=== PATIENT | male | born 1975 | race Caucasian/White ===

== ENCOUNTER → 2018-01-16 | Outpatient (CLI) | payer BC ==
--- NOTE | 2018-01-16 16:43 | KCIC ---
Indications: Polyarthralgia. Multiple joint pain. Joint inflammation. AP view the pelvis: There is severe joint space narrowing with loss of joint space of both hip joints. There is moderate subchondral sclerosis and cyst formation of the left hip joint. There is spurring of both hip joints. The SI joints and symphysis pubis are unremarkable. No acute fracture or dislocation or lytic process is evident. Impression: Severe degenerative osteoarthritis of both hip joints worse on the left side. 3 view study of the left foot: No acute fracture or dislocation or osteolytic process is evident. There is mild primary degenerative osteoarthritis of the first metatarsal phalangeal joint. No erosive arthropathy is evident. No plantar spur of the calcaneus is evident. 3 view study of the right foot: No acute fracture or dislocation or osteolytic process is evident. There is moderate to severe primary degenerative osteoarthritis of the first metatarsal phalangeal joint with loss of joint space. There are marginal erosions of this joint compartment and therefore could be secondary to gout. No erosive arthropathy is evident. No plantar spur of the calcaneus is evident. IMPRESSION: Primary degenerative osteoarthritis of the first metatarsal phalangeal joint of the left foot. Moderate to severe degenerative osteoarthritis of the first metatarsal phalangeal joint of the right foot. Erosive arthropathy is seen here and therefore could be secondary to gout. 3 view study of the left hand: No acute fracture or dislocation or osteolytic process is evident. No erosive arthropathy is evident. No significant arthritic change is seen. 3 view study right hand: No acute fracture or dislocation or osteolytic process is evident. There is erosive arthropathy of the articulation between the trapezium bone and the proximal second metacarpal bone. No significant degenerative spurring is evident. 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 Electronically signed by: Mateo Alejandro MD (01/16/2018 4:40 PM) [facility]
== END | disposition home or self-care (01) ==
LOC: KCIC 14:41
PROVIDERS: ATTEND Internal Medicine Rheumatology
DX: M19.072 Primary osteoarthritis, left ankle and foot (principal); M19.071 Primary osteoarthritis, right ankle and foot; M19.041 Primary osteoarthritis, right hand; M16.0 Bilateral primary osteoarthritis of hip
CPT/HCPCS: 72170; 73130; 73630

== ENCOUNTER → 2019-04-04 | Outpatient (CLI) | payer BC ==
--- NOTE | 2019-04-04 09:24 | KCIC ---
MRI Cervical Spine Without Contrast History: Neck pain, headaches, numbness and left arm with turning head, osteoarthritis Technique: Multiplanar, multi sequential noncontrast MR imaging was performed of the cervical spine. Comparison: July 17, 2013 Findings: There is some motion degradation. Cervical cord caliber is within normal limits without defined or expansile signal abnormality. There has been progression of moderate degenerative disc disease at C5-6. There is mild reversal of the lordotic curvature centered near C5. There is negligible anterior spondylolisthesis C4-5. There is no significant marrow edema. C2-C3: Spinal canal and left neural foramen are adequate. Facet degenerative change contributes to [id number] posterior narrowing of the right neural foramen. C3-C4: There is minimal disc osteophyte complex greater in the right lateral recess. Central canal is adequate about 12 mm. There is right facet and uncovertebral degenerative change contributing to moderate narrowing of the right neural foramen. Left neural foramen is adequate. C4-C5: There is very minimal disc osteophyte complex. Central canal is borderline about 10 mm. There is facet and uncovertebral degenerative change greater on the right. There is mild left and fairly severe right neural foramina compromise. C5-C6: There is minimal disc osteophyte complex, central canal borderline about 10 mm. There is bilateral facet and uncovertebral degenerative change somewhat greater on the left. Shallow protrusion at the anterior margin of left neural foramen is not excluded. There is increased fairly severe narrowing of the left neural foramen, likely moderate narrowing on the right. C6-C7: There is minimal disc osteophyte complex and very shallow protrusion in the right lateral recess, central canal adequate about 11 mm. Neural foramina are overall adequate. C7-T1: Spinal canal and neural foramina are adequate. There is facet degenerative change. Impression: 1. There is no significant cervical spinal stenosis. Facet and uncovertebral degenerative change contributes to neural foramina compromise as stated, more significant narrowing on the right at C4-5 and the left greater than right at C5-6. Shallow protrusion at the anterior margin of the left C5-6 neural foramen is not excluded. There has been progression of moderate C5-6 degenerative disc disease, mild spondylosis. Electronically signed by: Sterling Capellan MD (04/04/2019 9:21 AM) [id number]
== END | disposition home or self-care (01) ==
LOC: KCIC MRI 07:56
PROVIDERS: ATTEND Physician Assistant
DX: M47.812 Spondylosis without myelopathy or radiculopathy, cervical region (principal); M50.322 Other cervical disc degeneration at C5-C6 level; M43.12 Spondylolisthesis, cervical region; M48.02 Spinal stenosis, cervical region; M25.78 Osteophyte, vertebrae
CPT/HCPCS: 72141